=== PATIENT | male | born 1950 | race Caucasian/White ===

== ENCOUNTER 2018-01-31 20:31 | Observation (INO) | payer OTHER, MEDICARE ==
[2018-01-31] MEDS ORDERED: SODIUM CHLORIDE 0.9% 1,000 ML IV STA ×2 (21:10)
--- NOTE | 2018-01-31 21:16 | ED ---
Neck Injury/Pain HPI - General Chief Complaint: Neck Pain/Injury Stated Complaint: ear & neck pain/memory loss Time Seen by Provider: 01/31/18 20:59 Source: RN notes reviewed, old records reviewed Mode of arrival: ambulatory Limitations: no limitations - History of Present Illness Initial Comments: this patient's a 67-year-old male presents emergency department today with his son and with chief complaint of left-sided neck pain for the past 3 days. Patient reports his had a dull ache from his ear to his clavicle. [facility] who was concerned for carotid stenosis. Patient was sent here for further workup. According to family patient's been more forgetful. Patient apparently was in the garage and could not figure out a way to get to his house. Afterwards Patient was found sleeping in the garage with a blow torch running. He reports that he's had no chest pain or shortness of breath. He denies any nausea or vomiting or significant headache. He states that she's having a dull ache within the left side of his neck. - Related Data Home Medications Medication Instructions Recorded Confirmed No Known Home Medications 09/30/15 09/30/15 Allergies Allergy/AdvReac Type Severity Reaction Status Date / Time codeine Allergy Unknown Verified 01/31/18 20:43 Review of Systems ROS Statement: Those systems with pertinent positive or pertinent negative responses have been documented in the HPI. ROS Other: All systems not noted in ROS Statement are negative. Past Medical History Past Medical History: No Reported History History of Any Multi-Drug Resistant Organisms: None Reported Past Surgical History: Tonsillectomy Past Psychological History: Bipolar Smoking Status: Current every day smoker Past Alcohol Use History: Daily Past Drug Use History: Marijuana General Exam - General Exam Comments Initial Comments: 67-year-old male. Alert and oriented. No significant distress. Limitations: no limitations General appearance: alert, in no apparent distress Head exam: Present: atraumatic, normocephalic, normal inspection Eye exam: Present: normal appearance, PERRL, EOMI. Absent: scleral icterus, conjunctival injection, periorbital swelling ENT exam: Present: normal exam, mucous membranes moist Neck exam: Present: normal inspection. Absent: tenderness, meningismus, lymphadenopathy Respiratory exam: Present: normal lung sounds bilaterally. Absent: respiratory distress, wheezes, rales, rhonchi, stridor Cardiovascular Exam: Present: regular rate, normal rhythm, normal heart sounds. Absent: systolic murmur, diastolic murmur, rubs, gallop, clicks GI/Abdominal exam: Present: soft, normal bowel sounds. Absent: distended, tenderness, guarding, rebound, rigid Extremities exam: Present: normal inspection, full ROM, normal capillary refill. Absent: tenderness, pedal edema, joint swelling, calf tenderness Back exam: Present: normal inspection Neurological exam: Present: alert, oriented X3, CN II-XII intact Expanded Patient oriented to: Present: person, place, time Speech: Present: fluid speech Cranial nerves: EOM's Intact: Normal Cerebellar function: Finger to Nose: Normal Upper motor neuron: Pronator Drift: Normal Sensory exam: Upper Extremity Light Touch: Normal, Lower Extremity Light Touch: Normal Motor strength exam: RUE: 5, LUE: 5, RLE: 5, LLE: 5 Eye Response: (4) open spontaneously Motor Response: (6) obeys commands Verbal Response: (5) oriented Chucky Total: 15 Psychiatric exam: Present: normal affect, normal mood Skin exam: Present: warm, dry, intact, normal color. Absent: rash Course Vital Signs 01/31/18 20:38 Temperature 98 F Pulse Rate 65 Respiratory 16 Rate Blood Pressure 155/82 O2 Sat by Pulse 97 Oximetry Medical Decision Making - Medical Decision Making This is a 67-year-old male Patient is referred his room with family with chief complaint of pain over the left side of his neck. He was sent in by PCP to rule out carotid stenosis. Is no significant bruit at this time. He denies any chest pain or significant headache. He reports over the past 3 days has had increased pain. Patient also has had episodes of forgetfulness. Apparently patient's been more confused and leaving blowtorch is on in the house. Also getting locked out of the house without knowing how to get back in. At this time he has no significant neurological deficits. CT brain and C- spine were completed were negative for any acute process but there is some small evidence of ischemic change. CT angios head was completed and shows some mild atherosclerotic disease in the carotid bifurcation. EKG shows no significant changes. Lab work otherwise was unremarkable. This time we'll admit the Patient for neuro consult. I did also draw a Depakote and ammonia level. These are pending and admission. - Lab Data Result diagrams: 01/31/18 21:36 01/31/18 21:36 Lab Results 01/31/18 01/31/18 01/31/18 Range/Units 21:36 21:36 21:36 WBC 5.9 (3.8-10.6) k/uL RBC 4.00 L (4.30-5.90) m/uL Hgb 12.4 L (13.0-17.5) gm/dL Hct 38.4 L (39.0-53.0) % MCV 96.0 (80.0-100.0) fL MCH 31.1 (25.0-35.0) pg MCHC 32.4 (31.0-37.0) g/dL RDW 12.8 (11.5-15.5) % Plt Count 373 (150-450) k/uL Neutrophils % 54 % Lymphocytes % 31 % Monocytes % 9 % Eosinophils % 2 % Basophils % 1 % Neutrophils # 3.2 (1.3-7.7) k/uL Lymphocytes # 1.8 (1.0-4.8) k/uL Monocytes # 0.5 (0-1.0) k/uL Eosinophils # 0.1 (0-0.7) k/uL Basophils # 0.0 (0-0.2) k/uL PT (9.0-12.0) sec INR (<1.2) APTT (22.0-30.0) sec Sodium 132 L (137-145) mmol/L Potassium 4.1 (3.5-5.1) mmol/L Chloride 94 L (98-107) mmol/L Carbon Dioxide 32 H (22-30) mmol/L Anion Gap 6 mmol/L BUN 17 (9-20) mg/dL Creatinine 0.80 (0.66-1.25) mg/dL Est GFR (CKD-EPI)AfAm >90 (>60 ml/min/1.73 sqM) Est GFR (CKD-EPI)NonAf >90 (>60 ml/min/1.73 sqM) Glucose 62 L (74-99) mg/dL Calcium 9.8 (8.4-10.2) mg/dL Total Bilirubin 0.3 (0.2-1.3) mg/dL AST 56 (17-59) U/L ALT 45 (21-72) U/L Alkaline Phosphatase 82 (38-126) U/L Total Creatine Kinase 341 H (55-170) U/L CK-MB (CK-2) 7.6 H* (0.0-2.4) ng/mL CK-MB (CK-2) Rel Index 2.2 Troponin I <0.012 (0.000-0.034) ng/mL Total Protein 6.2 L (6.3-8.2) g/dL Albumin 3.6 (3.5-5.0) g/dL 01/31/18 Range/Units 21:36 WBC (3.8-10.6) k/uL RBC (4.30-5.90) m/uL Hgb (13.0-17.5) gm/dL Hct (39.0-53.0) % MCV (80.0-100.0) fL MCH (25.0-35.0) pg MCHC (31.0-37.0) g/dL RDW (11.5-15.5) % Plt Count (150-450) k/uL Neutrophils % % Lymphocytes % % Monocytes % % Eosinophils % % Basophils % % Neutrophils # (1.3-7.7) k/uL Lymphocytes # (1.0-4.8) k/uL Monocytes # (0-1.0) k/uL Eosinophils # (0-0.7) k/uL Basophils # (0-0.2) k/uL PT 10.7 (9.0-12.0) sec INR 1.1 (<1.2) APTT 27.7 (22.0-30.0) sec Sodium (137-145) mmol/L Potassium (3.5-5.1) mmol/L Chloride (98-107) mmol/L Carbon Dioxide (22-30) mmol/L Anion Gap mmol/L BUN (9-20) mg/dL Creatinine (0.66-1.25) mg/dL Est GFR (CKD-EPI)AfAm (>60 ml/min/1.73 sqM) Est GFR (CKD-EPI)NonAf (>60 ml/min/1.73 sqM) Glucose (74-99) mg/dL Calcium (8.4-10.2) mg/dL Total Bilirubin (0.2-1.3) mg/dL AST (17-59) U/L ALT (21-72) U/L Alkaline Phosphatase (38-126) U/L Total Creatine Kinase (55-170) U/L CK-MB (CK-2) (0.0-2.4) ng/mL CK-MB (CK-2) Rel Index Troponin I (0.000-0.034) ng/mL Total Protein (6.3-8.2) g/dL Albumin (3.5-5.0) g/dL 01/31/18 22:53 EKG shows sinus bradycardia, otherwise normal EKG noted. Regular 56 bpm. [facility] intervals 148 ms. QRS duration is 94 ms. QT QTc is 422/470 ms. No evidence of ST elevation or T-wave inversion. - Radiology Data Radiology results: report reviewed She will atrophy chronic small vessel ischemia. No cream ensure cranial abnormality. No acute changes. Chest x-ray No active cardiopulmonary disease. Probably COPD. No acute changes noted. Disposition Clinical Impression: Confusion, Neck pain, Atherosclerotic cerebrovascular disease Disposition: ADMITTED IP TO THIS HOSP Condition: Stable Is patient prescribed a controlled substance at d/c from ED?: No Referrals: [facility],Clinic [Primary Care Provider] - 1-2 days Time of Disposition: 00:00
[2018-01-31 21:48] LABS: Basophils % (A) 1 %; Eosinophils # (A) 0.1 k/uL (0-0.7); Eosinophils % (A) 2 %; HCT 38.4 % (39.0-53.0); HGB 12.4 gm/dL (13.0-17.5); Lymphocytes # (A) 1.8 k/uL (1.0-4.8); Lymphocytes % (A) 31 %; MCH 31.1 pg (25.0-35.0); MCHC 32.4 g/dL (31.0-37.0); Mean Platelet Volume 6.5; Monocytes # (A) 0.5 k/uL (0-1.0); Monocytes % (A) 9 %; Neutrophils # (A) 3.2 k/uL (1.3-7.7); Neutrophils % (A) 54 %; Platelet Count 373 k/uL (150-450); RDW 12.8 % (11.5-15.5); WBC 5.9 k/uL (3.8-10.6)
[2018-01-31 21:58] LABS: ALT 45 U/L (21-72); AST 56 U/L (17-59); Albumin 3.6 g/dL (3.5-5.0); Alkaline Phosphatase 82 U/L (38-126); Anion Gap 6 mmol/L; Blood Urea Nitrogen 17 mg/dL (9-20); Calcium 9.8 mg/dL (8.4-10.2); Carbon Dioxide 32 mmol/L (22-30); Chloride 94 mmol/L (98-107); Glucose 62 mg/dL (74-99); INR 1.1 (<1.2); Partial Thromboplastin Time 27.7 sec (22.0-30.0); Potassium 4.1 mmol/L (3.5-5.1); Prothrombin Time 10.7 sec (9.0-12.0); Sodium 132 mmol/L (137-145); Total Bilirubin 0.3 mg/dL (0.2-1.3); Total Protein 6.2 g/dL (6.3-8.2)
--- NOTE | 2018-01-31 21:59 | XR ---
EXAMINATION TYPE: XR chest 2V DATE OF EXAM: 01/31/2018 COMPARISON: 09/30/2015 HISTORY: Chest pain TECHNIQUE: Frontal and lateral views of the chest are obtained. FINDINGS: Heart and mediastinum are normal. Lungs are clear. There is some flattening of the diaphra gm. Bony thorax is intact. There are no hilar masses. IMPRESSION: No active cardiopulmonary disease. There is probably COPD. No change.
[2018-01-31 22:04] LABS: Creatine Kinase 341 U/L (55-170)
[2018-01-31 22:17] LABS: Troponin I <0.012 ng/mL (0.000-0.034)
[2018-01-31 22:18] LABS: Creatine Kinase MB 7.6 ng/mL (0.0-2.4)
--- NOTE | 2018-01-31 22:36 | CT ---
EXAMINATION TYPE: CT brain wo con DATE OF EXAM: 01/31/2018 COMPARISON: 09/30/2015 HISTORY: Neuro deficits CT DLP: mGycm Automated exposure control for dose reduction was used. FINDINGS: There is cerebral cortical atrophy. There is no mass effect nor midline shift. There is no sign of in tracranial hemorrhage. There is hypodensity in the periventricular white matter. IMPRESSION: CEREBRAL ATROPHY AND CHRONIC SMALL VESSEL ISCHEMIA. NO ACUTE INTRACRANIAL ABNORMALITY. NO CHANGE.
--- NOTE | 2018-01-31 23:16 | CT ---
EXAMINATION TYPE: CT angio head neck DATE OF EXAM: 01/31/2018 HISTORY: Neuro deficits. Neck pain. COMPARISON: None CT DLP: mGycm. Automated Exposure Control for Dose Reduction was Utilized. TECHNIQUE: Multiple axial sections were obtained from the aortic arch to the vertex of the brain with intravenous contrast. The contrast was Isovue 65 mL. There are 3-D post processed images. FINDINGS: There is normal branching pattern of the great vessels on the aortic arch. There is bilateral arteria l flow in the vertebral arteries which are fairly symmetric. Basilar artery appears normal. There is arterial flow in the common internal and external carotid arteries bilaterally. There is roseline e atherosclerotic plaque at the carotid artery bifurcations. There is lumen narrowing of less than 10 % at the left carotid artery bifurcation and 25% at the right internal carotid artery origin. There i s no evidence of carotid or vertebral artery aneurysm or dissection. There is arterial flow in the vertebrobasilar artery system. There is patency of the right posterior communicating artery. There is arterial flow in the anterior middle and posterior cerebral arteries. I see no evidence of aneurysm or neovascularity. There is normal contrast opacification of the venous sinuses. There is no evidence of intracranial arterial stenosis. IMPRESSION: There is mild atherosclerotic plaque at the carotid artery bifurcations with no evidence of hemodynamically significant stenosis. No intracranial vascular abnormality identified.
[2018-01-31] MEDS ORDERED: ASPIRIN 325 MG TAB PO STA (23:32)
[2018-02-01] MEDS: SODIUM CHLORIDE 0.9% 1,000 ML IV SCH ×3 (02:41→22:24)
--- NOTE | 2018-02-01 17:21 | P.HPIM ---
History of Present Illness H&P Date: 02/01/18 Chief Complaint: Neck pain Patient is a 67-year-old male with a known history of bipolar disorder was brought to the hospital by his son with complaints of left-sided neck pain for the past 3 days and also confusion more forgetful and bizarre and behavior. Patient has been having neck pain for the past 3 days. Mainly in the left side of the neck. No radiation. Patient also having been having on as per his at bedside for the past 1 month which got worse and last 3 days. 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 Patient apparently was in the garage and could not figure out a way to get to his house. Afterwards Patient was found sleeping in the garage with a blow torch running. Family initially contacted [place] physician who was concerned about currently stenosis and was brought to the hospital ER. Patient denied any compressive chest pain or shortness of breath. No nausea vomiting or abdominal pain. No recent illnesses or sick contacts. CT head showed cerebral atrophy and chronic small vessel ischemia. No acute intracranial abnormality. CT angiogram of the neck showed mild atherosclerotic leg and the carotid artery bifurcation with no evidence of hemodynamically significant stenosis. No intracranial vascular abnormality noted. EKG showed sinus bradycardia with heart rate in 50s Chest x-ray showed no acute cardiopulmonary process. But is probably COPD. CK 341. Sodium 132 Review of Systems Constitutional: Patient denies any fever or chills . No generalized weakness or weight loss. Abdomen: Patient denied nausea vomiting and diarrhea and abdominal pain. Cardiovascular: Patient denies any chest pain or short of breath no palpitations. Respiratory: patient denied any cough is from production. No shortness of breath Neurologic: Patient denied any numbness or tingling headache. Musculoskeletal: Patient denies any complaints of joint swelling or deformity. Left-sided neck pain. Skin: Negative Psychiatric: Negative Endocrine: No heat or cold intolerance. No recent weight gain. Genitourinary: No dysuria or hematuria. All other 14 point ROS negative except the above Past Medical History Past Medical History: Pneumonia Additional Past Medical History / Comment(s): pneumonia x3 History of Any Multi-Drug Resistant Organisms: None Reported Past Surgical History: Orthopedic Surgery, Tonsillectomy Additional Past Surgical History / Comment(s): right rotator-cuff surgery Past Anesthesia/Blood Transfusion Reactions: No Reported Reaction Past Psychological History: Bipolar Smoking Status: Current some day smoker Past Alcohol Use History: Daily Past Drug Use History: Marijuana - Past Family History Mother Family Medical History: No Reported History Father Family Medical History: CVA/TIA, Myocardial Infarction ([place]) Medications and Allergies Home Medications Medication Instructions Recorded Confirmed Type Divalproex ER [Depakote ER] 1,000 mg PO HS 02/01/18 02/01/18 History risperiDONE [RisperDAL] 0.5 mg PO HS 02/01/18 02/01/18 History Allergies Allergy/AdvReac Type Severity Reaction Status Date / Time codeine Allergy Unknown Verified 01/31/18 20:43 Physical Exam Vitals: Vital Signs Temp Pulse Pulse Pulse Resp BP BP 02/01/18 11:33 97.0 F L 54 L 16 155/91 02/01/18 08:00 97.1 F L 56 L 16 123/80 02/01/18 04:00 97.1 F L 65 60 15 132/72 02/01/18 02:33 58 L 60 16 02/01/18 01:02 62 16 153/73 02/01/18 00:37 97.1 F L 60 16 169/98 01/31/18 20:38 98 F 65 16 155/82 Pulse Ox 02/01/18 11:33 98 02/01/18 08:00 96 02/01/18 04:00 93 L 02/01/18 02:33 02/01/18 01:02 93 L 02/01/18 00:37 96 01/31/18 20:38 97 Intake and Output 02/01/18 02/01/18 02/01/18 06:59 14:59 22:59 Intake Total 1000 1020 Balance 1000 1020 Intake: Intake, IV Titration 1000 300 Amount Sodium Chloride 0.9% 1, 300 000 ml @ 100 mls/hr IV . Q10H DENIZ Rx#:[id number] Sodium Chloride 0.9% 1, 1000 000 ml @ 100 mls/hr IV . Q10H STA Rx#:[id number] Oral 720 Other: Voiding Method Toilet # Voids 2 2 Weight 50.8 kg 50.8 kg PHYSICAL EXAMINATION: Patient is lying in the bed comfortably, no acute distress, awake alert and oriented. Slightly confused. HEENT: Normocephalic. Neck is supple. Pupils reactive. Nostrils clear. Oral cavity is moist. Ears reveal no drainage. Neck reveals no JVD, carotid bruits, or thyromegaly. CHEST EXAMINATION: Trachea is central. Symmetrical expansion. Lung beasley clear to auscultation and percussion. CARDIAC: Normal S1, S2 with no gallops. No murmurs ABDOMEN: Soft. Bowel sounds normal. No organomegaly. No abdominal bruits. Extremities: reveal no edema. No clubbing or cyanosis Neurologically awake, alert, oriented x3 with well-coordinated movements. No focal deficits noted Skin: No rash or skin lesions. Psychiatric: Coperative. Nonsuicidal Musculoskeletal: No joint swelling or deformity. Normal range of motion. Results CBC & Chem 7: 01/31/18 21:36 01/31/18 21:36 Labs: Abnormal Lab Results - Last 24 Hours (Table) 01/31/18 01/31/18 01/31/18 Range/Units 21:36 21:36 21:36 RBC 4.00 L (4.30-5.90) m/uL Hgb 12.4 L (13.0-17.5) gm/dL Hct 38.4 L (39.0-53.0) % Sodium 132 L (137-145) mmol/L Chloride 94 L (98-107) mmol/L Carbon Dioxide 32 H (22-30) mmol/L Glucose 62 L (74-99) mg/dL Total Creatine Kinase 341 H (55-170) U/L CK-MB (CK-2) 7.6 H* (0.0-2.4) ng/mL Total Protein 6.2 L (6.3-8.2) g/dL Thrombosis Risk Factor Assmnt - DVT/VTE Prophylaxis DVT/VTE Prophylaxis: Pharmacologic Prophylaxis ordered - Choose All That Apply Any of the Below Risk Factors Present?: No Other Risk Factors: Yes Each Risk Factor Represents 2 Points: Age 61-74 years Other congenital or acquired thrombophilia - If yes, enter type in comment: No Thrombosis Risk Factor Assessment Total Risk Factor Score: 2 Thrombosis Risk Factor Assessment Level: Low Risk Assessment and Plan Assessment: Left-sided neck pain likely musculoskeletal origin. Improving now Hypovolemic hyponatremia Confusion and bizarre behavior with underlying bipolar disorder Bipolar disorder Nicotine addiction DVT prophylaxis Plan: Patient will be continued on IV hydration and will hold Depakote and Risperdal until confusion gets better. Continue with aspirin. Neurology was consulted for possible TIA. Stroke workup is negative so far. Patient had CT head and CT angiogram of the neck was done. Further recommendations based on the clinical course. Discussed with his at bedside. Time with Patient: Greater than 30
[2018-02-01] MEDS: DIVALPROEX ER 500 MG TAB.ER.24H PO SCH (22:34)
[2018-02-01] MEDS: HEPARIN SODIUM,PORCINE 5,000 UNIT/ML 1 ML VIAL SQ SCH (22:35)
--- NOTE | 2018-02-01 22:35 | CONS ---
CONSULTATION DATE OF CONSULTATION: 02/01/2018. CHIEF COMPLAINT: Altered mental status. HISTORY OF PRESENT ILLNESS: Mr. Aguilar is a pleasant 67-year-old male, who is being evaluated by the neurology service per the request of Dr. Sánchez for altered mental status. The patient was brought into [facility] Emergency room mainly with the complaint of left- sided neck pain. He states that he has had this neck pain for several years and he denies any changes in the intensity of his symptoms. A neurology consultation was obtained because his had mentioned that he has been having some memory issues and he has not been acting like his usual self. The patient had an extensive history of alcohol abuse where he had been drinking quite heavily on a daily basis for several years. She states that he quit drinking 3 years ago. More recently, she has noticed that he has been purchasing beer but she does not report any excessive drinking. She mentions to me that a couple of weeks ago, he came home and told her that they need to go on a trip. He drove her to the [facility] the [facility] and they stayed in a hotel in [place], [place]. When she woke up, he was not in his bed and was missing for the entire day. The police found him over 200 miles away with the gas out of gas. He states that he got lost which has never occurred before. She also mentions to me that he had an episode where he locked himself in the garage accidentally and she found him several hours later, asleep on the floor with a torch still on in the garage. Again, this is quite out of his characteristic. The patient denies any memory issues although his states that he has been having short-term memory loss over the past several months. A CT scan of the brain was done which showed small vessel ischemic changes atrophy. A CT angiogram of the brain and neck were also done which were normal. His Depakote level was 23.5. He states that he is on Depakote for history of bipolar disorder. He is also on Risperdal. His CBC was normal except for mild anemia with a hemoglobin of 12.4. His comprehensive metabolic profile showed mild hyponatremia at 132. His cardiac enzymes showed slightly elevated CPK at 341, CK-MB at 7.6, and normal troponins. At the time of my evaluation, he is sitting up in his bed and appears to be in no acute distress. He denies any neurological complaints. He denies any changes in his left-sided neck pain. PAST MEDICAL HISTORY: Bipolar disorder, history of tonsillectomy. SOCIAL HISTORY: The patient is an every day smoker. He has history of alcohol abuse as mentioned above with recent recurrence. He does admit to marijuana use. FAMILY HISTORY: Noncontributory. HOME MEDICATIONS: Reviewed in the chart. ALLERGIES: CODEINE. REVIEW OF SYSTEMS: CONSTITUTIONAL: Negative. EYES: Negative. ENT: Negative. CARDIOVASCULAR: Negative. RESPIRATORY: Negative. NEUROLOGICAL: As mentioned above. He denies any lateralizing numbness or weakness. GASTROINTESTINAL: Negative. GENITOURINARY: Negative. MUSCULOSKELETAL: As mentioned above. PSYCHIATRIC: As mentioned above. DERMATOLOGICAL: Negative. ENDOCRINE: Negative. PHYSICAL EXAM: Vital signs show a temperature of 97.1, pulse 47, respirations 16, blood pressure 170/79. GENERAL APPEARANCE: The patient is a well-developed, thin male, who appears to be in no acute distress. HEENT: Normocephalic, atraumatic, no facial asymmetry is seen. NECK: Supple with no masses felt. CARDIOVASCULAR: Bradycardic rate with a regular rhythm. ABDOMEN: Nontender nondistended. EXTREMITIES: Showed no edema or clubbing. NEUROLOGICAL exam: The patient is awake and oriented x3. Speech and language are normal. Affect is flat. Strength is full in all 4 extremities. Sensory exam was normal to light touch in all 4 extremities. No tremors or seizure-like activity is seen. No facial asymmetry is noticed on cranial nerve testing. IMPRESSION: 1. Altered mental status. 2. Behavior changes. 3. Memory loss. 4. Atypical neck pain. 5. Tobacco dependence. 6. History of alcohol abuse. RECOMMENDATION: The patient has been having significant behavior changes as mentioned above and this has been present for the past few months. He is also having some short term memory difficulties which his is complaining of and has been noticing for several months. His CT scan of the brain showed no acute findings. I will order an MRI of the brain along with an EEG. I will order a thyroid function panel and vitamin B12 level. I will order a Psychiatric consultation. The patient will need further outpatient neurological workup to check for dementias. The patient was counseled on alcohol and tobacco cessation. Continue neuro checks. I will continue to follow with you. Further recommendations to follow. Thank you for allowing me to participate in the care of your patient. If you have any questions, please feel free to contact me. Please send a copy this dictation to Dr Sánchez, [facility] in [place], and to my office. MMROCCOL / KORTNEYN: [id number] /
[2018-02-02] MEDS: SODIUM CHLORIDE 0.9% 1,000 ML IV SCH ×2 (05:14→16:50)
[2018-02-02 06:54] LABS: Basophils % (A) 0 %; Eosinophils # (A) 0.4 k/uL (0-0.7); Eosinophils % (A) 7 %; HCT 37.5 % (39.0-53.0); HGB 11.9 gm/dL (13.0-17.5); Lymphocytes # (A) 1.9 k/uL (1.0-4.8); Lymphocytes % (A) 36 %; MCH 31.7 pg (25.0-35.0); MCHC 31.7 g/dL (31.0-37.0); Mean Platelet Volume 6.4; Monocytes # (A) 0.5 k/uL (0-1.0); Monocytes % (A) 9 %; Neutrophils # (A) 2.3 k/uL (1.3-7.7); Neutrophils % (A) 44 %; Platelet Count 335 k/uL (150-450); RBC 3.75 m/uL (4.30-5.90); RDW 13.2 % (11.5-15.5); WBC 5.2 k/uL (3.8-10.6)
[2018-02-02 07:27] LABS: Anion Gap 4 mmol/L; Blood Urea Nitrogen 17 mg/dL (9-20); Carbon Dioxide 29 mmol/L (22-30); Chloride 98 mmol/L (98-107); Cholesterol 128 mg/dL (<200); Glucose 84 mg/dL (74-99); HDL Cholesterol 49 mg/dL (40-60); LDL Cholesterol,Calculated 68 mg/dL (0-99); Potassium 4.6 mmol/L (3.5-5.1); Sodium 131 mmol/L (137-145); Triglycerides 56 mg/dL (<150)
[2018-02-02 07:32] LABS: Valproic Acid (Depakene) 41.3 ug/mL
[2018-02-02 07:34] VITALS: RESP 16
[2018-02-02] MEDS: ASPIRIN 325 MG TAB PO SCH (08:54)
[2018-02-02] MEDS: HEPARIN SODIUM,PORCINE 5,000 UNIT/ML 1 ML VIAL SQ SCH ×3 (08:55→23:20)
[2018-02-02] MEDS ORDERED: LORazepam 2 MG/ML INJ IV STA (09:35)
--- NOTE | 2018-02-02 10:32 | ECHOF ---
Referral Reason:TIA MEASUREMENTS -------- HEIGHT: 165.1 cm WEIGHT: 50.3 kg BP: RVIDd: 2.6 cm (< 3.3) IVSd: 0.9 cm (0.6 - 1.1) LVIDd: 4.5 cm (3.9 - 5.3) LVPWd: 0.9 cm (0.6 - 1.1) IVSs: 1.3 cm LVIDs: 3.2 cm LVPWs: 1.1 cm LA Diam: 2.7 cm (2.7 - 3.8) LAESV Index (A-L): 27.79 ml/m Ao Diam: 3.4 cm (2.0 - 3.7) AV Cusp: 2.0 cm (1.5 - 2.6) LA Diam: 2.6 cm (2.7 - 3.8) MV EXCURSION: 16.312 mm (> 18.000) MV EF SLOPE: 98 mm/s (70 - 150) EPSS: 0.2 cm MV E Jayant: 0.57 m/s MV DecT: 238 ms MV A Jayant: 0.69 m/s MV E/A Ratio: 0.83 RAP: 5.00 mmHg RVSP: 30.81 mmHg FINDINGS -------- Sinus rhythm. This was a technically good study. LV size, wall thickness and systolic function are normal, with an EF greater than 55%. The left bryce tricular size is normal. The right ventricle is normal in size. Normal LA size by volume 22+/-6 ml/m2. The right atrial size is normal. The aortic valve is trileaflet, and appears structurally normal. No aortic stenosis or regurgitation. The mitral valve leaflets are mildly thickened. Mild mitral regurgitation is present. Mild tricuspid regurgitation present. There is no evidence of pulmonary hypertension. The right v entricular systolic pressure, as measured by Doppler, is 30.81mmHg. There is no pulmonic regurgitation present. The aortic root size is normal. There is no pericardial effusion. CONCLUSIONS -------- 1. Sinus rhythm. 2. LV size, wall thickness and systolic function are normal, with an EF greater than 55%. 3. The left ventricular size is normal. 4. Normal LA size by volume 22+/-6 ml/m2. 5. The aortic valve is trileaflet, and appears structurally normal. No aortic stenosis or regurgitati on. 6. The mitral valve leaflets are mildly thickened. 7. Mild mitral regurgitation is present. 8. Mild tricuspid regurgitation present. 9. There is no evidence of pulmonary hypertension. 10. There is no pulmonic regurgitation present. 11. The aortic root size is normal. 12. There is no pericardial effusion. LIQUID FERTILIZER SERVICER: Aggie Bonner RDCS
--- NOTE | 2018-02-02 11:39 | MR ---
EXAMINATION TYPE: MR brain wo con DATE OF EXAM: 02/02/2018 COMPARISON: CT 01/31/2018 HISTORY: 67 year-old male altered mental status TECHNIQUE: Multiplanar, multisequence images of the brain and brainstem were acquired without IV con trast. Diffusion weighted imaging is performed. FINDINGS: No evidence for acute infarction, hemorrhage, mass, mass effect, midline shift, herniation, effacemen t of basal cisterns, or extra-axial fluid collection. There is moderate generalized supratentorial volume loss. No hydrocephalus. Major intracranial flow voids are intact. T2/FLAIR weighted sequences show moderate patchy right white matter changes especially in the periven tricular regions and a few foci in the deep white matter and subcortical regions. Midline structures demonstrate normal morphology. The craniocervical junction is normal. Trace mucosal thickening ethmoid air cells. Partial opacification of the bilateral mastoid air cells. Globes are intact. IMPRESSION: 1. No acute intracranial abnormality seen. 2. Moderate cerebral atrophy and moderate patchy changes of chronic small vessel ischemic disease. 3. Trapped fluid in both mastoid air cells. Correlate for any mastoid pain to exclude mastoiditis..
--- NOTE | 2018-02-02 16:19 | P.PN ---
Subjective Progress Note Date: 02/02/18 Principal diagnosis: Altered mental status Is a pleasant 67-year-old male continuingly evaluated by the neurology service for altered mental status. He was brought to [facility] emergency room with left-sided neck pain. 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 Arousal consultation was placed because of the history given by his some unusual behavior lately. Patient is denying any memory issues are odd behavior. His CT of the brain showed small vessel ischemic changes and some cerebral atrophy. CTA of the brain and neck were normal. Subsequent MRI of the brain showed no acute ischemic changes. It did show some moderate atrophic changes with small vessel ischemic disease. It also showed some significant bilateral mastoiditis. He does take Depakote for history of bipolar disorder. He is unresponsive note. He had some mild hyponatremia which continues. He had some mildly elevated CPK and CK-MB levels. At this time my exam he is resting comfortably in bed. No acute distress. Objective - Vital Signs Vital signs: Vital Signs Temp 97.4 F L 02/02/18 11:20 Pulse 63 02/02/18 11:20 Resp 16 02/02/18 11:20 BP 140/86 02/02/18 11:20 Pulse Ox 96 02/02/18 11:20 Intake & Output 02/01/18 02/02/18 02/02/18 18:59 06:59 18:59 Intake Total 1260 1970 480 Balance 1260 1970 480 Weight 50.8 kg 50.5 kg Intake: IV 30 Invasive Line 1 30 Intake, IV Titration 300 20 Amount Sodium Chloride 0.9% 1, 300 20 000 ml @ 100 mls/hr IV . Q10H [facility] Rx#:[id number] Oral 960 1920 480 Other: Voiding Method Toilet # Voids 2 2 2 - Constitutional General appearance: Present: cooperative, no acute distress - EENT Eyes: Present: EOMI, PERRLA. Absent: abnormal pupil, ptosis ENT: Present: hearing grossly normal - Neck Neck: Present: normal ROM. Absent: rigidity - Respiratory Respiratory: negative: prolonged expiration, prolonged inspiration - Cardiovascular Rhythm: regular - Gastrointestinal General gastrointestinal: Absent: distended, tenderness - Neurologic Neurologic Comment(s): The patient is alert awake and oriented 3. Speech and language are normal. There is no facial asymmetry. Strength is 5 out of 5 in bilateral upper and lower extremities. There is no sensory deficit. No tremors or seizures are seen. Cranial nerves II through XII are intact globally. - Labs CBC & Chem 7: 02/02/18 06:27 02/02/18 06:27 Labs: Abnormal Lab Results - Last 24 Hours (Table) 02/01/18 02/02/18 02/02/18 Range/Units 00:56 06:27 06:27 RBC 3.75 L (4.30-5.90) m/uL Hgb 11.9 L (13.0-17.5) gm/dL Hct 37.5 L (39.0-53.0) % Sodium 131 L (137-145) mmol/L Vitamin B12 1242.0 H (200.0-944.0) pg/mL Assessment and Plan (1) Altered mental status Current Visit: Yes Status: Acute Code(s): R41.82 - ALTERED MENTAL STATUS, UNSPECIFIED SNOMED Code(s): 028334241 (2) Behavioral change Current Visit: Yes Status: Acute Code(s): R46.89 - OTHER SYMPTOMS AND SIGNS INVOLVING APPEARANCE AND BEHAVIOR SNOMED Code(s): 158367277 (3) Memory loss Current Visit: Yes Status: Acute Code(s): R41.3 - OTHER AMNESIA SNOMED Code(s): 943286818 (4) Mastoiditis Current Visit: Yes Status: Acute Code(s): H70.90 - UNSPECIFIED MASTOIDITIS, UNSPECIFIED EAR SNOMED Code(s): 87831827 (5) History of alcohol abuse Current Visit: Yes Status: Acute Code(s): Z87.898 - PERSONAL HISTORY OF OTHER SPECIFIED CONDITIONS SNOMED Code(s): 524978832 (6) Neck pain Current Visit: Yes Status: Acute Code(s): M54.2 - CERVICALGIA SNOMED Code( s): 23379468 Plan: Again these behavior changes and memory issues have been present over the last few months. CT of the brain showed no acute findings. MRI of the brain results as above. His thyroid function test was normal. His B12 level was a little high. To my knowledge he takes no B12 supplementation. Psychiatric consultation is in place. He will need outpatient neurological workup or possibly some type dementia. His father did have Parkinson's and dementia. I will order an ENT consult for his finding of mastoiditis neck pain. Continue the rest of your workup. Otherwise he is cleared from a neurological standpoint to follow up in outpatient setting. I have performed a history and physical on the above patient. I have reviewed the above note, and agree.
--- NOTE | 2018-02-02 17:55 | P.CN ---
Psychiatric Consult - . Consult date: 02/02/18 Consult:: 02/02/18 17:39 Identification: Patient is a 67-year-old male was brought to the emergency room due to using, bizarre behavior, being forgetful and unable to do his job correctly. Reason for Consult: Behavior changes History of Present Illness: Patient's chart was reviewed the patient was seen and interviewed in his room his was present and she provided additional historical information. Patient states that he came to the emergency room because he was having neck pain and was concerned about having a stroke. Patient is treated at [facility] in [place] for bipolar disorder that was diagnosed 3 years ago by having a manic episode. Patient states that he has been on Depakote, thousand milligrams at bedtime to treat his bipolar disorder. Patient per his was placed on Risperdal in November when they went to see the psychiatrist at a dose of 0.5 mg at bedtime. Patient and his report that the patient is compliant with his medications. Patient's states that he has never had any manic episodes since the initial one when he was spending too much money was drinking like a fish per the patient, was not sleeping. Patient and his described no depressive episodes and no suicide attempts. Patient at that time was hospitalized at [facility] in [place] for a week and then at [facility] for a week. He said no other psychiatric admissions. Patient states he had received no psychotropic medication prior to that for many wanted never been seen by a psychiatrist prior to that time. Patient has continued to follow with the [facility] for psychiatric care. According to the the symptoms began in November when the patient began having difficulty with his memory, went to place a cat door in his daughter's home on 2 doors and accomplished 1 correctly, the other one he placed at the top of the door, flipped the door around and still did not get the door to operate correctly. Patient's also states they were on the [place] [facility] in [place], he left and was lost about 120 miles from where they were staying, he was out of gas. He is also gone to stay at his sister's home by himself for 2 weeks and she states that it took a number of people quite some time to clean up the mess that he left there. She states that currently he is not as bad as he was when this began in November but he has not returned to his baseline. She states that he has trouble tying his shoes, is not able to do things that he did before. Patient does not endorse any history of psychotic symptoms, no suicide attempts , no anxiety symptoms Past Psychiatric History: Patient has 2 prior admissions 3 years ago when he had a manic episode, he's been maintained on Depakote 1000 mg extended release at bedtime followed at the [facility] and is also been started on Risperdal 0.5 mg at bedtime in November by the psychiatrist. Past Medical/Surgical History: Patient has no medical history and states he is had rotator cuff surgery on his right shoulder Family History: Patient states that his sister has an unknown psychiatric diagnosis, he states his brother and sister have problems with alcohol. He reports no completed suicides in the family Social History: Patient was born and raised in [place] his parents are both and he has 3 brothers and 4 sisters. Patient completed high school and enlisted in the [employer] where he served for 2 years actively and then 4 years in the [employer] and was honorably discharged. 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 States he' s been for 49 years and they have 3 children. He and his are currently living with his son in his son's home and they moved there 3 years ago when he had his first manic episode. Patient and his both state that they do not get along well with her [id number]. Patient denies any abuse history. Patient's states that financially they're not able to move out on their own. Substance Use History: Patient states he drank beer in the past his states that for 2 years he drank probably a case a day and last stop drinking that heavily 3 years ago. He currently now drinks intermittently and it's been several weeks since he had 3 beers. Patient has used marijuana for a number of years. He denies any other drug use history or IV drug use. Patient does use tobacco products. Legal History: Patient has no legal history Mental status: Appearance/Attitude: Patient is a very thin-appearing male wearing a baseball cap, dressed casually sitting in the side of the bed in no acute distress, makes only intermittent eye contact and has some difficulty hearing and is cooperative Behavior: Patient does not exhibit any psychomotor agitation or retardation Speech/Language: Patient's speech is of normal volume and rhythm and he is coherent Thought Process: Patient's responses are goal-directed, they are brief with little elaboration there is no evidence of loose association or flight of ideas Thought Content: Patient denies any auditory or visual hallucinations and no paranoid or delusional ideation is elicited. Patient does not endorse any symptoms of feeling hopeless, helpless or worthless and does not endorse any symptoms of racing thoughts. Patient reports that he has sleeping and eating well. Suicidal/Homicidal Ideation: Patient denies any current homicidal or suicidal ideation Sensorium/Cognition: Patient is alert and oriented to person, place, and time, he recalled 3 objects after 5 minutes, he stated that the presidents were trumped, Obama and Pawan. Patient was able to do serial sevens however it took him a long time to do them. Patient was able to draw a clock correctly with the hands at 10 after 11. He was also able to draw a three-dimensional cube. Patient denied that he had any trouble focusing or concentrating. He states that he does not get lost. Patient could not elaborate on the symptoms of the confusion and bizarre behavior that his reported regarding the door that he was installing, his getting lost in [place] or that his sister's home that he had stayed in was trashed. Mood/Affect: Patient's mood was pleasant and his affect was slightly blunted Insight/Judgment: Patient's insight and judgment are fair Assessment: Patient was diagnosed 3 years ago with a bipolar disorder with his first episode of estuardo at that time. Per his and the patient he had had no prior episodes of depression or estuardo but was a heavy drinker and has used alcohol for the bulk of his adult life. He apparently in November began having confusion, bizarre behavior, being unable to do things correctly, got lost and was unable to resolve problems. His MRI shows moderate cerebral atrophy and small vessel ischemia. Patient has not been drinking heavily for 3 years. Patient has been treated with Depakote and recently had Risperdal added due to the above described behaviors. Patient is currently not exhibiting any manic symptoms or depressive symptoms and there is no evidence of a psychotic process and he is denying any suicidal or homicidal ideation. It is unclear to me if in November he had mood symptoms as his and he are unable to really clearly describe what went on. His current symptoms of confusion, being unable to do tasks that he did do, getting lost are more indicative of a neurologic/ cognitive issue. Diagnosis: Bipolar disorder by history Plan: Patient does not require an inpatient psychiatric admission, I would continue his current psychotropic medication at the doses that he has been prescribed of Depakote 1000 mg extended release at bedtime and Risperdal 0.5 mg at bedtime. Patient may require psychological testing to assess his cognitive status more completely as an outpatient. Patient should follow-up with his psychiatrist through the [facility], and medication adjustments can be made through them. Patient's states that the patient has an appointment tomorrow with his psychiatrist and apparently 2 weeks later at the clinic in [place].I encouraged the patient to avoid all alcohol and drugs as well as to be compliant with his medication and appointments. I will sign off the case if there are any further questions or concerns please don't hesitate to contact me.
--- NOTE | 2018-02-02 18:15 | EEG ---
ELECTROENCEPHALOGRAM REPORT DATE OF SERVICE: 02/02/2018 REASON FOR TESTING: Altered mental status. DESCRIPTION OF THE PROCEDURE: This EEG was performed using a 21-channel digital electroencephalograph, following international 10-20 system. DESCRIPTION OF THE RECORDING: From the beginning of the tracing, and with the patient's eyes closed, the background rhythm was mostly consisting of 8 Hz alpha frequency in the posterior occipital leads. No obvious asymmetry is seen. Photic stimulation was performed with a minimal driving response seen. No pathological waves were elicited. Hyperventilation was not performed. Occasional movement artifacts are seen. The patient does reach stage II of sleep during the tracing and occasional sleep spindles are seen. No epileptiform discharges were seen. INTERPRETATION: This asleep and awake EEG can be considered within normal limits. There was no asymmetry seen. No epileptiform discharges were noticed. The absence of epileptiform discharges does not rule out the diagnosis of epilepsy; therefore clinical correlation is recommended. LUCA / JG: [id number] /
[2018-02-02] MEDS: cefTRIAXone IN SWFI 1,000 MG/10 ML SYRINGE IVP SCH (20:47)
[2018-02-02] MEDS: DIVALPROEX ER 500 MG TAB.ER.24H PO SCH (20:47)
--- NOTE | 2018-02-03 00:54 | P.PN ---
Subjective Progress Note Date: 02/02/18 Principal diagnosis: Altered mental status with possible underlying dementia Patient is a 67-year-old male with a known history of bipolar disorder was brought to the hospital by his son with complaints of left-sided neck pain for the past 3 days and also confusion more forgetful and bizarre and behavior. Patient has been having neck pain for the past 3 days. Mainly in the left side of the neck. No radiation. Patient also having been having on as per his at bedside for the past 1 month which got worse and last 3 days. 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 Patient apparently was in the garage and could not figure out a way to get to his house. Afterwards Patient was found sleeping in the garage with a blow torch running. Family initially contacted [facility] physician who was concerned about currently stenosis and was brought to the hospital ER. Patient denied any compressive chest pain or shortness of breath. No nausea vomiting or abdominal pain. No recent illnesses or sick contacts. CT head showed cerebral atrophy and chronic small vessel ischemia. No acute intracranial abnormality. CT angiogram of the neck showed mild atherosclerotic leg and the carotid artery bifurcation with no evidence of hemodynamically significant stenosis. No intracranial vascular abnormality noted. EKG showed sinus bradycardia with heart rate in 50s Chest x-ray showed no acute cardiopulmonary process. But is probably COPD. CK 341. Sodium 132 02/02/2018 Patient denied any complaints of chest pain or shortness of breath. Patient seems more awake and oriented. Patient was seen by neurology and psychiatry. Patient underwent MRI of the brain and EEG today. MRI showed no acute intracranial abnormality. Moderate cerebral atrophy and moderate patchy changes of chronic small ischemic disease. trapped fluis in both mastoid air cells. Correlate for mastoid pain and acute mastoiditis. ENT was consulted. EEG is within normal limits.. Objective - Vital Signs Vital signs: Vital Signs Temp 97.1 F L 02/02/18 20:00 Pulse 64 02/02/18 23:37 Resp 16 02/02/18 23:37 BP 137/79 02/02/18 23:37 Pulse Ox 98 02/02/18 23:37 Intake & Output 02/02/18 02/02/18 02/03/18 06:59 18:59 06:59 Intake Total 1970 720 200 Balance 1970 720 200 Weight 50.5 kg Intake: IV 30 Invasive Line 1 30 Intake, IV Titration 20 Amount Sodium Chloride 0.9% 1, 20 000 ml @ 100 mls/hr IV . Q10H [facility] Rx#:[id number] Oral 1920 720 200 Other: Voiding Method Toilet Toilet # Voids 2 2 1 - Labs CBC & Chem 7: 02/02/18 06:27 02/02/18 06:27 Labs: Abnormal Lab Results - Last 24 Hours (Table) 02/01/18 02/02/18 02/02/18 Range/Units 00:56 06:27 06:27 RBC 3.75 L (4.30-5.90) m/uL Hgb 11.9 L (13.0-17.5) gm/dL Hct 37.5 L (39.0-53.0) % Sodium 131 L (137-145) mmol/L Vitamin B12 1242.0 H (200.0-944.0) pg/mL Assessment and Plan Assessment: Left-sided neck pain likely musculoskeletal origin. Rule out acute mastoiditis as per MRI brain. Hypovolemic hyponatremia Confusion and bizarre behavior with underlying bipolar disorder Possible underlying dementia Bipolar disorder Nicotine addiction DVT prophylaxis Plan: Patient will be continued on IV hydration and did hold Depakote and Risperdal until confusion gets better. Patient will be started back and Depakote and Risperdal. Continue with aspirin. Stroke workup is negative so far. Patient had CT head and CT angiogram of the neck was done. 2-D echo showed normal ejection fraction. MRI of the brain and EEG were done. Neurology recommends outpatient workup for dementia. Further recommendations based on the clinical course. Time with Patient: Greater than 30
[2018-02-03 06:39] LABS: Basophils % (A) 0 %; Eosinophils # (A) 0.3 k/uL (0-0.7); Eosinophils % (A) 6 %; HCT 39.7 % (39.0-53.0); HGB 12.2 gm/dL (13.0-17.5); Lymphocytes # (A) 1.8 k/uL (1.0-4.8); Lymphocytes % (A) 34 %; MCH 30.9 pg (25.0-35.0); MCHC 30.7 g/dL (31.0-37.0); MCV 100.8 fL (80.0-100.0); Mean Platelet Volume 6.5; Monocytes # (A) 0.4 k/uL (0-1.0); Monocytes % (A) 8 %; Neutrophils # (A) 2.4 k/uL (1.3-7.7); Neutrophils % (A) 47 %; Platelet Count 341 k/uL (150-450); RBC 3.94 m/uL (4.30-5.90); RDW 13.2 % (11.5-15.5); WBC 5.1 k/uL (3.8-10.6)
[2018-02-03 06:52] LABS: Anion Gap 4 mmol/L; Blood Urea Nitrogen 14 mg/dL (9-20); Calcium 8.9 mg/dL (8.4-10.2); Carbon Dioxide 34 mmol/L (22-30); Chloride 94 mmol/L (98-107); Glucose 78 mg/dL (74-99); Potassium 4.2 mmol/L (3.5-5.1); Sodium 132 mmol/L (137-145)
[2018-02-03] MEDS: cefTRIAXone IN SWFI 1,000 MG/10 ML SYRINGE IVP SCH (07:49)
[2018-02-03] MEDS: HEPARIN SODIUM,PORCINE 5,000 UNIT/ML 1 ML VIAL SQ SCH (07:49)
[2018-02-03] MEDS: ASPIRIN 325 MG TAB PO SCH (07:49)
--- NOTE | 2018-02-03 10:54 | P.GSCN ---
History of Present Illness Consult date: 02/03/18 Reason for Consult: Fluid found and bilateral mastoid on MRI Requesting physician: Jake Sandoval History of present illness: This patient presented to the hospital with left neck pain. Numerous a thought of a possible carotid stenosis and he has had a workup and has had neurologic evaluation. He still complains of left neck pain which she describes as a dull aching pain that emanates from the left mastoid down the lateral neck to the supraclavicular region and sternocleidomastoid muscle attachment. This worse when he moves his head. An MRI done of the brain demonstrated some fluid in the mastoids but that was noted bilaterally. The patient denies any otologic symptoms such as hearing loss, ear pain, dizziness, otorrhea etc. Denies any other specific neurologic symptoms either. I've been asked to consult regarding this patient's mastoid fluid which was found bilaterally. Review of Systems - Constitutional Denies anorexia - EENT Ears, nose, mouth and throat: Denies bleeding gums - Cardiovascular Denies claudication - Respiratory Denies cough - Gastrointestinal Denies abdominal pain - Genitourinary Denies discharge - Musculoskeletal Denies frequent falls - Integumentary Denies brittle nails - Neurological Denies balance difficulties - Psychiatric Denies change in appetite - Endocrine Denies cold intolerance - Allergic/Immunologic Reports allergic rhinitis Past Medical History Past Medical History: Pneumonia Additional Past Medical History / Comment(s): pneumonia x3 History of Any Multi-Drug Resistant Organisms: None Reported Past Surgical History: Orthopedic Surgery, Tonsillectomy Additional Past Surgical History / Comment(s): right rotator-cuff surgery Past Anesthesia/Blood Transfusion Reactions: No Reported Reaction Past Psychological History: Bipolar Smoking Status: Current some day smoker Past Alcohol Use History: Daily Past Drug Use History: Marijuana - Past Family History Mother Family Medical History: No Reported History Father Family Medical History: CVA/TIA, Myocardial Infarction (MA) Medications and Allergies Home Medications Medication Instructions Recorded Confirmed Type Divalproex ER [Depakote ER] 1,000 mg PO HS 02/01/18 02/01/18 History risperiDONE [RisperDAL] 0.5 mg PO HS 02/01/18 02/01/18 History Allergies Allergy/AdvReac Type Severity Reaction Status Date / Time codeine Allergy Unknown Verified 01/31/18 20:43 Surgical - Exam Osteopathic Statement: *. No significant issues noted on an osteopathic structural exam other than those noted in the History and Physical/Consult. Vital Signs Temp Pulse Resp BP Pulse Ox 98 F 65 16 155/82 97 01/31/18 20:38 01/31/18 20:38 01/31/18 20:38 01/31/18 20:38 01/31/18 20:38 - General well developed, no distress, no moderate distress, moderate pain - Eyes PERRL, normal ocular movement, no pale - ENT normal pinna, normal nares, normal mucosa, no hearing loss, no congestion - Neck Left neck pain to palpation along the lateral cervical region. No specific tumors or masses are noted. Some boggy cervical lymphadenopathy is appreciated no masses, no bruits, trachea midline, no lymphadectomy, no venous distension - Respiratory normal expansion - Musculoskeletal normal gait, normal posture - Psychiatric oriented to time, oriented to person, oriented to place, speech is normal, memory intact Results - Labs 02/03/18 06:19 02/03/18 06:19 Abnormal Lab Results - Last 24 Hours (Table) 02/03/18 02/03/18 Range/Units 06:19 06:19 RBC 3.94 L (4.30-5.90) m/uL Hgb 12.2 L (13.0-17.5) gm/dL MCV 100.8 H (80.0-100.0) fL MCHC 30.7 L (31.0-37.0) g/dL Sodium 132 L (137-145) mmol/L Chloride 94 L (98-107) mmol/L Carbon Dioxide 34 H (22-30) mmol/L Diabetes panel 02/03/18 Range/Units 06:19 Sodium 132 L (137-145) mmol/L Potassium 4.2 (3.5-5.1) mmol/L Chloride 94 L (98-107) mmol/L Carbon Dioxide 34 H (22-30) mmol/L BUN 14 (9-20) mg/dL Creatinine 0.78 (0.66-1.25) mg/dL Glucose 78 (74-99) mg/dL Calcium 8.9 (8.4-10.2) mg/dL Calcium panel 02/03/18 Range/Units 06:19 Calcium 8.9 (8.4-10.2) mg/dL Pituitary panel 02/03/18 Range/Units 06:19 Sodium 132 L (137-145) mmol/L Potassium 4.2 (3.5-5.1) mmol/L Chloride 94 L (98-107) mmol/L Carbon Dioxide 34 H (22-30) mmol/L BUN 14 (9-20) mg/dL Creatinine 0.78 (0.66-1.25) mg/dL Glucose 78 (74-99) mg/dL Calcium 8.9 (8.4-10.2) mg/dL Adrenal panel 02/03/18 Range/Units 06:19 Sodium 132 L (137-145) mmol/L Potassium 4.2 (3.5-5.1) mmol/L Chloride 94 L (98-107) mmol/L Carbon Dioxide 34 H (22-30) mmol/L BUN 14 (9-20) mg/dL Creatinine 0.78 (0.66-1.25) mg/dL Glucose 78 (74-99) mg/dL Calcium 8.9 (8.4-10.2) mg/dL Assessment and Plan Plan: I recommended that this patient undergo a CAT scan of the neck in light of his persistent left neck pain. He does have some fluid in the mastoid air cells but that does not appear to be related to a specific left mastoid and neck pain. 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 We will keep the patient empirically on antibiotics and we'll change his antibiotics to oral Augmentin and discontinued the Rocephin. I suggest that we continue the Augmentin after discharge for at least 7-10 days and a follow-up in my office is recommended. My card was given. Patient is to follow up with me one week after discharge and an audiogram will be performed when he returns to the office for complete otologic workup. Time with Patient: Greater than 30
[2018-02-03 11:26] VITALS: BMI 19.5
[2018-02-03 11:28] VITALS: BP 120/74; PULSE 71; TEMP 97
[2018-02-03] MEDS ORDERED: IPRATROPIUM-ALBUTEROL 3 ML NEB INHALATION PRN (12:32)
--- NOTE | 2018-02-03 12:38 | P.DS ---
Providers Date of admission: 01/31/18 23:32 Expected date of discharge: 02/03/18 Attending physician: Ivone Sánchez Consults: 02/01/18 00:01 Consult Physician Urgent Consulting Provider: Ainsley Monterroso Consult Reason/Comments: TIA symptoms Do you want consulting provider notified?: Yes 02/01/18 20:09 Consult Physician Routine Consulting Provider: Renata Galvez Consult Reason/Comments: Behavior changes Do you want consulting provider notified?: Already Contacted 02/02/18 16:17 Consult Physician Routine Consulting Provider: Pepe Gasca Consult Reason/Comments: Left neck pain and mastoiditis Do you want consulting provider notified?: Yes Primary care physician: [facility] Hospital Course: Discharge diagnosis Left-sided neck pain likely musculoskeletal origin. Suspected acute mastoiditis as per MRI brain. Hypovolemic hyponatremia Hypercarbia with possible underlying COPD Confusion and bizarre behavior with history of bipolar disorder Possible underlying dementia Bipolar disorder Nicotine addiction DVT prophylaxis Hospital course Patient is a 67-year-old male with a known history of bipolar disorder was brought to the hospital by his son with complaints of left-sided neck pain for the past 3 days and also confusion more forgetful and bizarre and behavior. Patient has been having neck pain for the past 3 days. Mainly in the left side of the neck. No radiation. Patient also having been having on as per his at bedside for the past 1 month which got worse and last 3 days. 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 Patient apparently was in the garage and could not figure out a way to get to his house. Afterwards Patient was found sleeping in the garage with a blow torch running. Family initially contacted [place] physician who was concerned about currently stenosis and was brought to the hospital ER. Patient denied any compressive chest pain or shortness of breath. No nausea vomiting or abdominal pain. No recent illnesses or sick contacts. CT head showed cerebral atrophy and chronic small vessel ischemia. No acute intracranial abnormality. CT angiogram of the neck showed mild atherosclerotic leg and the carotid artery bifurcation with no evidence of hemodynamically significant stenosis. No intracranial vascular abnormality noted. EKG showed sinus bradycardia with heart rate in 50s Chest x-ray showed no acute cardiopulmonary process. But is probably COPD. CK 341. Sodium 132 02/02/2018 Patient denied any complaints of chest pain or shortness of breath. Patient seems more awake and oriented. Patient was seen by neurology and psychiatry. Patient underwent MRI of the brain and EEG today. MRI showed no acute intracranial abnormality. Moderate cerebral atrophy and moderate patchy changes of chronic small ischemic disease. trapped fluis in both mastoid air cells. Correlate for mastoid pain and acute mastoiditis. ENT was consulted. EEG is within normal limits.. 02/03/2018 Patient denied any complaints of chest pain or shortness of breath. Awake and oriented. No complaints of neck pain today. Patient does have hypercapnia with possible chronic CO2 retainer. Suspected underlying COPD. Patient was advised to follow-up with pulmonary clinic as an outpatient. Patient really to follow with ENT and neurology as well for further workup for dementia. Otherwise patient is stable to be discharged home. Plan: Patient was continued on IV hydration and did hold Depakote and Risperdal until confusion gets better. Patient will be started back and Depakote and Risperdal. Stroke workup is negative so far. Patient had CT head and CT angiogram of the neck was done. 2-D echo showed normal ejection fraction. MRI of the brain and EEG were done. Neurology recommends outpatient workup for dementia. Patient is otherwise stable to be discharged home. Discharge physical examination was done and vitals reviewed. 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 ] Pulse Rate [ 64 71 Pulse Oximetery ] Respiratory 16 16 16 Rate Blood Pressure 140/77 120/74 [Right Arm] O2 Sat by Pulse 97 98 Oximetry 02/03/18 12:00 Temperature Pulse Rate [ J[employer] Custodian ] Pulse Rate [ 71 Pulse Oximetery ] Respiratory Rate Blood Pressure [Right Arm] O2 Sat by Pulse Oximetry Patient Condition at Discharge: Stable Plan - Discharge Summary Discharge Rx Participant: No New Discharge Prescriptions: New Amoxicillin/Potassium Clav [Augmentin 875-125 Tablet] 1 each PO Q12HR #20 tab Albuterol Inhaler [Ventolin Hfa Inhaler] 1 - 2 puff INHALATION RT-Q6H PRN #1 inhaler PRN Reason: Shortness Of Breath Continue risperiDONE [RisperDAL] 0.5 mg PO HS Divalproex ER [Depakote ER] 1,000 mg PO HS Discharge Medication List Divalproex ER [Depakote ER] 1,000 mg PO HS 02/01/18 [History] risperiDONE [RisperDAL] 0.5 mg PO HS 02/01/18 [History] Albuterol Inhaler [Ventolin Hfa Inhaler] 1 - 2 puff INHALATION RT-Q6H PRN #1 inhaler 02/03/18 [Rx] Amoxicillin/Potassium Clav [Augmentin 875-125 Tablet] 1 each PO Q12HR #20 tab [Rx] Follow up Appointment(s)/Referral(s): Pepe Gasca DO [Doctor of Osteopathic Medicine] - 1 Week Ainsley Monterroso MD [STAFF PHYSICIAN] - 3 Weeks [facility] [Primary Care Provider] - 1-2 days (Pt must make their own appointment. Please call to schedule.) Vipul Logan MD [STAFF PHYSICIAN] - 1 Week Activity/Diet/Wound Care/Special Instructions: Follow-up with Dr. Gasca after discharge for otologic evaluation on an outpatient basis. Discharge Disposition: HOME SELF-CARE
--- NOTE | 2018-02-03 18:19 | CT ---
EXAMINATION TYPE: CT soft tissue neck w con DATE OF EXAM: 02/03/2018 COMPARISON: Correlation CT angiography 01/31/2018 HISTORY: 67-year-old male Left sided neck pain and fullness and left otalgia. TECHNIQUE: Contiguous axial scanning of the soft tissues of the neck performed with IV Contrast, stan ent injected with 100 mL of Isovue 300. Coronal/sagittal reconstructions performed. CT DLP: 487 mGycm Automated exposure control for dose reduction was used. FINDINGS: Visualized intracranial structures, orbits and globes, paranasal sinuses are pneumatized. Partial opa cification of the inferior most mastoid air cells on both sides. Middle ear cavities remain pneumatiz ed. Nasopharynx is clear. As compared to 01/31/2018 there seems to be greater degree of soft tissue fullness in the region of th e oropharynx and hypopharynx. The vallecular spaces are partially effaced and the piriform sinuses ar e effaced. The glottic and subglottic structures as well as the tracheal column appear clear. Moderate emphysema in the visualized upper lungs with pleural parenchymal scarring. The thyroid gland and submandibular glands appear satisfactory. Parotid glands appear satisfactory. P aucity of fat within the neck without convincing evidence of suspicious lymphadenopathy No significant prevertebral soft tissue swelling identified. The epiglottis appears normal. Mild to moderate degenerative disc disease throughout with disc vacuum at C6/C7 and particularly at C 5-C6 contributing to mild to moderate spinal canal stenosis. IMPRESSION: 1. INCREASING SOFT TISSUE FULLNESS IN THE REGION OF THE OROPHARYNX AND HYPOPHARYNX NOW WITH PARTIAL E FFACEMENT OF OF THE VALLECULAR SPACES AND ESSENTIALLY COMPLETE EFFACEMENT OF THE PIRIFORM SINUSES, NE W FROM PRIOR EXAM. CORRELATE FOR POSSIBLE INFECTION. 2. THE AIRWAY AT THE LEVEL OF THE OROPHARYNX IS EFFACED BUT THIS COULD BE DUE TO TONGUE POSITIONING. CLINICALLY CORRELATE. 3. NO CONVINCING EVIDENCE FOR CERVICAL LYMPHADENOPATHY. 4. SOME TRAPPED FLUID IN THE BILATERAL INFERIOR MASTOID AIR CELLS POSSIBLY INCIDENTAL. CORRELATE FOR ANY MASTOID PAIN TO EXCLUDE MASTOIDITIS.
[2018-02-03] MEDS ORDERED: risperiDONE 0.5 MG TAB PO SCH (21:00)
[2018-02-03] MEDS ORDERED: AMOXIC-POT CLAV 875-125MG 1 EACH TAB PO SCH (21:00)
== END 2018-02-03 16:13 | disposition home or self-care (01) ==
LOC: EC 20:31 → INTOOBSV 23:32 → 6SEL 23:32 → INTOOBSV 02-01 01:57 → OBSVTOIN 02-01 01:57
PROVIDERS: ADMIT Hospitalist; ATTEND Hospitalist
DX: M54.2 Cervicalgia (principal); E86.1 Hypovolemia; E87.1 Hypo-osmolality and hyponatremia; F31.9 Bipolar disorder, unspecified; R41.82 Altered mental status, unspecified; R41.3 Other amnesia; I67.82 Cerebral ischemia; H70.93 Unspecified mastoiditis, bilateral; D64.9 Anemia, unspecified; R74.8 Abnormal levels of other serum enzymes; R06.89 Other abnormalities of breathing; F10.10 Alcohol abuse, uncomplicated; R00.1 Bradycardia, unspecified; F12.90 Cannabis use, unspecified, uncomplicated; M48.02 Spinal stenosis, cervical region; F17.200 Nicotine dependence, unspecified, uncomplicated; J30.9 Allergic rhinitis, unspecified; Z79.899 Other long term (current) drug therapy; Z88.5 Allergy status to narcotic agent; Z86.59 Personal history of other mental and behavioral disorders; Z87.01 Personal history of pneumonia (recurrent); Z82.49 Family history of ischemic heart disease and other diseases of the circulatory system; Z82.3 Family history of stroke; Z81.1 Family history of alcohol abuse and dependence; Z81.8 Family history of other mental and behavioral disorders
CPT/HCPCS: 96361 ×6; 99285 ×2; 96376; 96372 ×3; 96374; 96375; 36415; 95819; 93005; 93306; 97161; 97165; 92523; 80164 ×2; 80061; 80053; 80048 ×2; 84443; 82607; 82140; 82550; 82553; 84484; 85025 ×3; 85610; 85730; 71046; 70496; 70491; 70450; 70498; 70551; G0378 ×5; J2060; J1644 ×3; J0696 ×2; Q9967 ×2